=== PATIENT | male | born 1945 | race Two or more races ===

== ENCOUNTER 2017-11-15 23:23 | Inpatient (IN) | payer MEDICARE, OTHER ==
[~2017-11-15] VITALS: Ht 165.1 cm; Wt 82.1 kg
[2017-11-15 23:45] VITALS: BP 146/70
--- NOTE | 2017-11-15 23:45 | NUR ---
HEALTH CARE / MEDICAL JOB TITLES ADMITTING NOTES PATIENT BROUGHT INTO THE UNIT VIA GURNEY TRANSFERRED FROM [facility] AND ACCOMPANIED BY 2 [facility]. PT WILL BE UNDER THE CARE OF BRANDO HAYES. PT IS ALERT AND ORIENTED X 3, WITH SOME FORGETFULNESS. NO SOB, BREATHING EVEN AND UNLABORED, IN NO ACUTE DISTRESS, AFEBRILE, NOTED WITH PRODUCTIVE COUGH. RECEIVING O2 VIA NC 2 4LPM. ORIENTED PATIENT TO UNIT, ROOM, ADMISSION PROCESS, CALL LIGHT AND USE OF CALL LIGHT. PATIENT VERBALIZED UNDERSTANDING. PATIENT NOTED WITH IV PERIPHERAL CARLA ON RAC G#20, INTACT AND PATENT. PATIENT'S DAUGHTER AND SON AT BEDSIDE. ALL PATIENT'S NEEDS ATTENDED TO. PLACED BED IN LOW POSITION AND LOCKED IN PLACE. WILL CONTINUE TO MONITOR.
[2017-11-16] VITALS: BP 146/70
--- NOTE | 2017-11-16 | NUR ---
RN NOTES STATISTICAL PROGRAMMER ABIGAIL AT BEDSIDE.
[2017-11-16] MEDS ORDERED: CLON1TAB PO (00:27)
[2017-11-16] MEDS ORDERED: MAGN400O21 PO (00:27)
[2017-11-16] MEDS ORDERED: ATOR10TA PO (00:27)
[2017-11-16] MEDS ORDERED: ATEN25TA PO (00:27)
[2017-11-16] MEDS ORDERED: ONDANSETRON HCL/PF 4 MG/2 ML VIAL IVP PRN (00:30)
[2017-11-16] MEDS ORDERED: MAGNESIUM HYDROXIDE 30 ML UDC PO PRN (00:30)
[2017-11-16] MEDS ORDERED: ZOLPIDEM TARTRATE 5 MG TABLET PO PRN (00:30)
[2017-11-16] MEDS ORDERED: ALBUTEROL FS 2.5 MG/0.5 ML VIAL.NEB NEB PRN (00:30)
[2017-11-16] MEDS ORDERED: IPRATROPIUM NEB FS 0.5 MG/2.5 ML AMPUL.NEB NEB PRN (00:30)
[2017-11-16] MEDS ORDERED: ACETAMINOPHEN 325 MG TABLET PO PRN (00:30)
[2017-11-16] MEDS ORDERED: Z GUARD REMEDY 2 OZ OINT TP PRN (00:30)
[2017-11-16] MEDS ORDERED: GABA-534 PO (01:24)
--- NOTE | 2017-11-16 01:30 | NUR ---
RN NOTES PATIENT REQUESTING FOR MEDICATION TO HELP HIM SLEEP. OFFERED AMBIEN BUT PATIENT REFUSED AND WAS ASKING FOR CLONAZEPAM. WASTED AMBIEN 5MG TAB WITH MOLLY TORIBIO. PAGED INTERIOR DESIGN COORDINATOR ABIGAIL FOR ORDER OF CLONAZEPAM 1MG PO. RECEIVED NEW ORDER, NOTED AND CARRIED OUT. WILL CONTINUE TO MONITOR PT.
[2017-11-16] MEDS ORDERED: clonazePAM 1 MG TABLET PO PRN (01:40)
[2017-11-16] MEDS ORDERED: AZITHROMYCIN 500 MG VIAL ONE (01:43)
[2017-11-16] MEDS: AZITHROMYCIN 500 MG in IV D5W 250 ML IV SCH (01:52)
[2017-11-16] MEDS: methylPREDNISolone SOD SUCC 40 MG/ML VIAL IV SCH ×5 (02:00→17:07)
[2017-11-16] MEDS: clonazePAM 1 MG TABLET PO SCH ×2 (02:00→21:29)
[2017-11-16] MEDS: IV NS 0.9% 1,000 ML IV PRN (02:11)
[2017-11-16] MEDS: ENOXAPARIN SODIUM 40 MG/0.4 ML DISP.SYRIN SQ SCH (02:18)
[2017-11-16 04:00] VITALS: BP 137/77
--- NOTE | 2017-11-16 06:39 | NUR ---
RN CLOSING NOTES PATIENT IN BED, ASLEEP BUT EASILY AROUSABLE, ALERT AND ORIENTED X 3, ABLE TO MAKE NEEDS KNOWN. PT CONTINUES TO RECEIVE O2 VIA NC @ 4LPM, O2 SAT @ 93%. IVF INFUSING WELL VIA IV PERIPHERAL LINE ON RAC G20. REMINDED PT TO USE CALL LIGHT FOR ASSISTANCE WHEN HE NEEDS TO USE THE BATHROOM, PT VERBALIZED UNDERSTANDING. ALL PATINE'S NEEDS ATTENDED TO THROUGHOUT THE SHIFT. PLACED CALL LIGHT WITHIN EASY REACH. BED IN LOW POSITION AND LOCKED IN PLACE. WILL ENDORSE TO AM SHIFT NURSE FOR CONTINUITY OF CARE.
[2017-11-16 06:42] LABS: BASOPHILS % (AUTO) 0.2 % (0.0-2.0); EOSINOPHILS % (AUTO) 0.2 % (0.0-6.0); HEMATOCRIT 44 % (39-51); HEMOGLOBIN 14.6 g/dL (13.5-17.5); LYMPHOCYTES # (AUTO) 1.1 /CMM (0.8-4.8); MEAN CORPUSCULAR HGB CONC 33 g/dl (31.0-36.0); MEAN CORPUSCULAR VOLUME 90 fL (80-96); MONOCYTES # (AUTO) 0.3 /CMM (0.1-1.30); MONOCYTES % (AUTO) 2.8 % (2.0-12.0); NEUTROPHILS # (AUTO) 8.4 /CMM (1.8-8.9); NEUTROPHILS % (AUTO) 85.8 % (43.0-81.0); PLATELET COUNT (AUTO) 183 /CMM (150-450); RDW COEFFICIENT OF VARIATION 13.6 (11.5-15.0); RED BLOOD CELL COUNT(AUTO) 4.87 MIL/uL (4.5-6.0); WHITE BLOOD COUNT (AUTO) 9.8 K/uL (4.3-11.0)
[2017-11-16 07:11] LABS: CARBON DIOXIDE 27 mmol/L (21-32); CHLORIDE 107 mmol/L (98-107); CREATININE 0.8 mg/dL (0.6-1.3); GLUCOSE 144 mg/dL (74-106); MAGNESIUM 1.9 mg/dL (1.8-2.4); PHOSPHORUS 1.5 mg/dL (2.5-4.9); POTASSIUM 4.3 mmol/L (3.5-5.1); SODIUM SERUM 141 mmol/L (136-145); UREA NITROGEN, BLOOD 17 mg/dL (7-18)
--- NOTE | 2017-11-16 07:20 | NUR ---
MS/RN OPENING NOTE PATIENT ALERT AND ORIENTED X3. ON TELE MONITOR AN READING SR 92. DENIES SOB. RESPIRATION REGULAR AND UNLABORED. DENIES PAIN. RAC G 20 PATENT AND IV INFUSING WITH NO S/S INFILTRATION. BED LOW AND LOCKED. CALL LIGHT WITHIN REACH. WILL CONTINUE TO MONITOR.
[2017-11-16 08:00] VITALS: BP 141/71
[2017-11-16] MEDS: GABAPENTIN 300 MG CAPSULE PO SCH ×3 (08:42→17:07)
[2017-11-16] MEDS: ATORVASTATIN 10 MG TABLET PO SCH (08:42)
[2017-11-16] MEDS: HYDROCODONE/APAP 5/325MG 1 EACH TABLET PO PRN ×2 (08:42→15:30)
[2017-11-16] MEDS: ATENOLOL 25 MG TABLET PO SCH (08:43)
[2017-11-16 12:00] VITALS: BP 138/77
[2017-11-16] MEDS ORDERED: CEFTRIAXONE 1 G in IV D5W 50 ML IV SCH (15:00)
[2017-11-16] MEDS ORDERED: K PHOS NEUTRAL 250 MG TABLET PO ONE (15:30)
[2017-11-16 16:00] VITALS: BP_SYST 133; BP_DIAS 66; BP_DIAS 69
[2017-11-16] MEDS: LACTOBACILLUS RHAMNOSUS GG 1 EACH CAP.SPRINK PO SCH (17:07)
--- NOTE | 2017-11-16 18:11 | NUR ---
MS/RN CLOSING NOTE PATIENT ALERT AND ORIENTED X3. DENIES SOB. PATIENT IS ON OXYGEN AT 4L/MIN VIA NC AND OXYGEN SATURATION IS AT 95%. DENIES PAIN. PATIENT IS CONTINENT ON BOWEL AND BLADDER. AMBULATES WITH STAND BY ASSIST. PATIENT NOTED WITH STABLE GATE. VERBAL PROVIDED ARE PROVIDED TO KEEP SAFETY AWARENESS HIGH. RAC G 20 PATENT AND IV INFUSING WITH NO S/S INFILTRATION. BED LOW AND LOCKED. SIDE RAILS UP X2. CALL LIGHT WITHIN REACH. WILL ENDORSE TO GARAGE DOOR SERVICE TECHNICIAN.
[2017-11-16] MEDS: IPRATROPIUM NEB FS 0.5 MG/2.5 ML AMPUL.NEB NEB SCH (19:30)
[2017-11-16] MEDS: ALBUTEROL FS 2.5 MG/0.5 ML VIAL.NEB NEB SCH (19:30)
[2017-11-16 20:00] VITALS: BP 126/62
--- NOTE | 2017-11-16 20:46 | NUR ---
RECIEVING NOTES: ALERT AND ORIENTATED SPEECH CLEAR MOVING ALL EXTREMITIES. REVIEWED THE CALL LIGHT SYSTEMS WITH HIM AND REMINDED HIM TO CALL WHEN NEED TO GET UP. sATS 93%
[2017-11-17] MEDS: AZITHROMYCIN 500 MG in IV D5W 250 ML IV SCH (00:16)
[2017-11-17] MEDS: IV NS 0.9% 1,000 ML IV PRN (00:18)
[2017-11-17] MEDS: ENOXAPARIN SODIUM 40 MG/0.4 ML DISP.SYRIN SQ SCH (01:48)
[2017-11-17] MEDS: IPRATROPIUM NEB FS 0.5 MG/2.5 ML AMPUL.NEB NEB SCH ×3 (01:53→07:35)
[2017-11-17] MEDS: ALBUTEROL FS 2.5 MG/0.5 ML VIAL.NEB NEB SCH ×3 (01:53→07:35)
[2017-11-17] MEDS: HYDROCODONE/APAP 5/325MG 1 EACH TABLET PO PRN ×3 (02:00→12:34)
[2017-11-17 04:00] VITALS: BP 145/74
[2017-11-17 04:03] VITALS: BP 145/74
--- NOTE | 2017-11-17 05:25 | NUR ---
CLOSING NOTES: O2 3 LITERS AND SATS 93% LUNGS VIA AUSCULTATION LEFT NOTED RHONCHI. WHEN OOB AMBULATING IN THE ROOM W/O 02 NO NOTED SOB. NO COUGHING HEARD.MEDICATED WITH NORCO 1 TAB FOR LEG PAIN DURING THE NIGHT AND EFFECTIVE FOR RELIEF.
[2017-11-17 05:49] LABS: BASOPHILS # (AUTO) 0.1 /CMM (0.0-0.2); BASOPHILS % (AUTO) 0.7 % (0.0-2.0); HEMATOCRIT 43 % (39-51); HEMOGLOBIN 14.2 g/dL (13.5-17.5); LYMPHOCYTES % (AUTO) 17.2 % (20.0-44.0); MEAN CORPUSCULAR HGB CONC 33 g/dl (31.0-36.0); MEAN CORPUSCULAR VOLUME 90 fL (80-96); MONOCYTES # (AUTO) 0.6 /CMM (0.1-1.30); MONOCYTES % (AUTO) 4.9 % (2.0-12.0); NEUTROPHILS # (AUTO) 9.2 /CMM (1.8-8.9); NEUTROPHILS % (AUTO) 77.2 % (43.0-81.0); PLATELET COUNT (AUTO) 206 /CMM (150-450); RDW COEFFICIENT OF VARIATION 13.3 (11.5-15.0); RED BLOOD CELL COUNT(AUTO) 4.74 MIL/uL (4.5-6.0); WHITE BLOOD COUNT (AUTO) 11.9 K/uL (4.3-11.0)
[2017-11-17 06:22] LABS: CHOLESTEROL 133 mg/dL (<200); HDL CHOLESTEROL 48 mg/dL (40-60); LDL 70 mg/dL (0-99); TRIGLYCERIDES 70 mg/dL (30-150)
[2017-11-17 06:47] LABS: CALCIUM, SERUM 8.6 mg/dL (8.5-10.1); CARBON DIOXIDE 26 mmol/L (21-32); CHLORIDE 110 mmol/L (98-107); CREATININE 0.7 mg/dL (0.6-1.3); GLUCOSE 146 mg/dL (74-106); MAGNESIUM 2.1 mg/dL (1.8-2.4); PHOSPHORUS 2.1 mg/dL (2.5-4.9); POTASSIUM 3.8 mmol/L (3.5-5.1); SODIUM SERUM 144 mmol/L (136-145); UREA NITROGEN, BLOOD 14 mg/dL (7-18)
--- NOTE | 2017-11-17 07:55 | NUR ---
RN NOTE RECEIVED PATIENT ALERT AND ORIENTED X3, HE IS ABLE TO MAKE THINGS KNOWN AND VERBALIZED NEEDS. BREATHING EVEN AND UNLABORED WITH NO DISTRESS NOTED. PATIENT IS ABLE TO AMBULATE WITH ASSIST. PATIENT DENIES PAIN AT THIS TIME. RIGHT AC IV SITE INTACT AND PATENT. BED LOW AND LOCKED POSITION, PLACED CALL LIGHT WITHIN REACH. WILL CONTINUE TO MONITOR.
[2017-11-17 08:00] VITALS: BP 161/84
[2017-11-17] MEDS: GABAPENTIN 300 MG CAPSULE PO SCH ×2 (08:06→12:34)
[2017-11-17] MEDS: LACTOBACILLUS RHAMNOSUS GG 1 EACH CAP.SPRINK PO SCH (08:06)
[2017-11-17] MEDS: ATORVASTATIN 10 MG TABLET PO SCH (08:06)
[2017-11-17 08:07] VITALS: BP 161/84
[2017-11-17] MEDS: ATENOLOL 25 MG TABLET PO SCH (08:07)
[2017-11-17] MEDS: methylPREDNISolone SOD SUCC 40 MG/ML VIAL IV SCH ×2 (08:07→12:35)
[2017-11-17] MEDS ORDERED: METF-440 PO (10:25)
[2017-11-17] MEDS ORDERED: AMLO1CAP8 PO (10:25)
[2017-11-17] MEDS ORDERED: BENA20TA9 PO (10:25)
[2017-11-17] MEDS ORDERED: CLON1TAB5 PO (10:25)
[2017-11-17] MEDS ORDERED: K PHOS NEUTRAL 250 MG TABLET PO ONE (13:30)
--- NOTE | 2017-11-17 14:00 | NUR ---
RN NOTE 72 YEAR OLD MALE DISCHARGED TO HOME IN STABLE CONDITION. COMPLIANT WITH MEDICATIONS, COOPERATIVE WITH TREATMENT PLANS. INSTRUCTED PATIENT TO GO TO CLOSET ER IF SYMPTOMS WORSENS. MEDICAL TREATMENT PLANS DEFERRED FOR CONTINUAL MONITORING. EDUCATED PATIENT ABOUT AFTER CARE PLAN AND COPIES PROVIDED. RETURNED PERSONAL BELONGINGS TO PATIENT. MEDICATION RECONCILED. PATIENT SIGNED DISCHARGE PAPERWORK. PATIENT REFUSED TO TAKE WOUND PICTURES. REMOVE IV SITE, CATHETER INTACT. PATIENT LEFT THE UNIT AT 1400 VIA PRIVATE CAR WITH FRIEND NAMED RUDOLPH.
== END 2017-11-17 14:11 | disposition home or self-care (01) | DRG 193 ==
LOC: TELE1 23:25 → MEDSG1 11-16 10:00
PROVIDERS: ADMIT Nurse Practitioner Acute Care; ATTEND Nurse Practitioner Acute Care
DX: J15.9 Unspecified bacterial pneumonia (principal); J96.01 Acute respiratory failure with hypoxia; J44.0 Chronic obstructive pulmonary disease with (acute) lower respiratory infection; J44.1 Chronic obstructive pulmonary disease with (acute) exacerbation; G62.9 Polyneuropathy, unspecified; Z87.891 Personal history of nicotine dependence; I10 Essential (primary) hypertension; F41.9 Anxiety disorder, unspecified; E78.5 Hyperlipidemia, unspecified; E66.9 Obesity, unspecified; D72.829 Elevated white blood cell count, unspecified; Z68.30 Body mass index [BMI] 30.0-30.9, adult
CPT/HCPCS: 36415; 71045-TC; 80048-TC; 80061-TC; 83735-TC; 84100-TC; 85025-TC; 87081-TC; 94799-TC; J0456; J0696; J1650; J2920; J7030; J7050; J7060; Z7610

== ENCOUNTER 2017-11-26 13:11 | Outpatient (CLI) | payer MEDICARE, OTHER ==
[~2017-11-26 13:11] MED LIST: AMLO1CAP8 PO; ATEN25TA PO; ATOR10TA PO; BENA20TA2 PO; CLON1TAB PO; CLON1TAB4 PO; GABA-534 PO; MAGN400O21 PO; METF500T4 PO
[2017-11-26 13:20] VITALS: BP 124/58
== END 2017-11-26 23:59 | disposition home or self-care (01) ==
LOC: MSC 13:11
PROVIDERS: ATTEND Internal Medicine
DX: Z09 Encounter for follow-up examination after completed treatment for conditions other than malignant neoplasm (principal); J44.9 Chronic obstructive pulmonary disease, unspecified; I10 Essential (primary) hypertension; F17.200 Nicotine dependence, unspecified, uncomplicated; E78.5 Hyperlipidemia, unspecified; G62.9 Polyneuropathy, unspecified; F41.9 Anxiety disorder, unspecified